=== PATIENT | male | born 1960 | race Caucasian/White ===

== ENCOUNTER 2016-10-11 12:25 | Outpatient (CLI) | payer OTHER ==
--- NOTE | 2016-10-11 17:13 | Diagnostic Imaging Report ---
ALDAIR YOUNGER [facility] [id number] [facility] [address] [place], [place]. [address] Report Submission Date: Oct 11, 2016 1:34:39 PM CDT Patient Study Name: KARRI PRABHAKAR Date: Oct 11, 2016 12:39:23 PM CDT MRN: [id number] Modality Type: US Gender: M Description: US ABD LIMITED : 60 Institution: [facility] Physician: ALDAIR YOUNGER Examination: Ultrasound gallbladder History: Epigastric discomfort Findings: Sonographic evaluation of the right upper quadrant demonstrates the gallbladder without stones or sludge. Gallbladder wall measures 2.4 mm. Along the medial and superior margin of the gallbladder wall are echogenic structures measuring 3.5 and 3.8 mm. Common bile duct measures 4.6 mm. No intrahepatic biliary dilation. Liver demonstrates increased homogeneous echogenicity. No mass or cyst. Normal flow on color analysis. Right kidney measures 13.3 cm in length. No cortical mass or cyst. No hydronephrosis. Pancreatic region without gross irregularity. Impression: Gallbladder polyps. No evidence for gallstone or obstruction. Fatty liver. Electronically signed on Oct 11, 2016 1:34:39 PM CDT by: Chintan LACY
== END 2016-10-11 12:26 ==
LOC: RAD 12:25
PROVIDERS: ATTEND Family Medicine
DX: R10.11 Right upper quadrant pain (principal); R14.0 Abdominal distension (gaseous)
CPT/HCPCS: 76705